=== PATIENT | female | born 1990 | race Caucasian/White ===

== ENCOUNTER 2021-04-18 08:11 | Day surgery (SDCO) | payer OTHER ==
[~2021-04-18] VITALS: Ht 167.6 cm; Wt 61.2 kg
[~2021-04-18 08:11] MED LIST: BUSPIRONE HCL10 MG PO; DOXYCYCLINE MO100 MG PO; IBUPROFEN800 MG PO; MOTRIN600 MG PO; PERCOCET 5-3251 EACH PO; ROBAXIN750 MG PO; ZOFRAN8 MG PO; ZOLOFT100 MG PO; ZYRTEC10 M3 PO
[2021-04-18] MEDS ORDERED: BENTYL10 MG PO (08:22)
[2021-04-18] MEDS ORDERED: DAILY VALUE1 EACH PO (08:23)
[2021-04-18] MEDS ORDERED: GAS RELIEF125 MG PO (08:24)
[2021-04-18 08:37] LABS: HCG (URINE) SCREEN NEGATIVE (NEGATIVE)
[2021-04-18 08:56] LABS: HCT 40.1 % (37.0-47.0); HGB 12.9 g/dl (12.5-16.0); MCH 29.7 pg (25.0-31.0); MCHC 32.2 g/dL (32.0-36.0); MCV 92.4 fL (78.0-100.0); MPV 10.9 fL (6.0-9.5); RBC 4.34 M/uL (4.20-5.40); RDW 13.5 % (11.5-14.0); WBC 8.2 K/uL (4.0-10.5)
[2021-04-18] MEDS ORDERED: ZOFRAN4 M1 PO (11:30)
[2021-04-18] MEDS ORDERED: PERCOCET 5-3251 EACH PO (11:30)
[2021-04-18] MEDS ORDERED: IBUPROFEN800 M1 PO (11:30)
[2021-04-18] MEDS ORDERED: COLACE100 MG PO (11:30)
== END 2021-04-18 13:00 | disposition home or self-care (01) ==
LOC: FSDC 08:11 → FMS 09:00 → FSDC 13:00
PROVIDERS: ADMIT Obstetrics & Gynecology
DX: N80.2 Endometriosis of fallopian tube (principal); N80.3 Endometriosis of pelvic peritoneum; N72 Inflammatory disease of cervix uteri; N87.9 Dysplasia of cervix uteri, unspecified; N39.0 Urinary tract infection, site not specified; J45.909 Unspecified asthma, uncomplicated; F32.9 Major depressive disorder, single episode, unspecified; F43.10 Post-traumatic stress disorder, unspecified; F41.9 Anxiety disorder, unspecified; K58.9 Irritable bowel syndrome, unspecified; F17.200 Nicotine dependence, unspecified, uncomplicated; Z88.8 Allergy status to other drugs, medicaments and biological substances; Z79.899 Other long term (current) drug therapy; Z20.822 Contact with and (suspected) exposure to COVID-19
CPT/HCPCS: 36415; 84703; 86850; 86900; 86901; G0378; J0690; J1100; J1170; J2250; J2405; J2704; J2710; J3010; J7120; U0002